=== PATIENT | female | born 1990 | race Caucasian/White ===

== ENCOUNTER 2016-10-20 15:20 | Emergency (ER) | payer OTHER ==
--- NOTE | 2016-10-20 20:22 | ED CLINICAL REPORT ---
Clinical Report - Physicians/Mid Levels [facility] [address] [place] [address] 10/20/2016 15:22 Patient: ROBB LONG Time Seen: 19:11; initial patient contact, initial documentation, patient care assumed. Arrived- By ambulance. Historian- patient. HISTORY OF PRESENT ILLNESS Chief Complaint: COUGH, SORE THROAT and "FLU". This started about 2 days ago and is still present. The illness is described as moderate. The patient has had a cough, a sore throat and muscle aches. No difficulty breathing, chest discomfort or pain or fever. No nasal congestion or discharge, sinus pressure, sinus drainage or ear pain. (here with 2 other family members that are pts, admitted to coming in ambulance because they needed a ride to hospital). Additional history - The patient has had contact with a sick individual. They have had similar symptoms. Similar symptoms previously: None. Recent medical care: Not recently seen/assessed. REVIEW OF SYSTEMS No vomiting or diarrhea. Denies current . All systems otherwise negative, except as recorded above. PAST HISTORY Negative. SOCIAL HISTORY Never smoker. Not exposed to second-hand smoke at home. No alcohol use or drug use. No recent travel. Is a local resident. She lives with spouse. FAMILY HISTORY Negative. ADDITIONAL NOTES The nursing notes have been reviewed with agreement regarding the chief complaint, HPI, ROS, PMH and patient medications and allergies. PHYSICAL EXAM Vital Signs: 10/20/2016 17:05 BP: 139/98. HR: 126. RR: 16. O2 saturation: 100%. Temp: 98.2 F. Pain level now: 0/10. Have been reviewed as abnormal and appear to be correct. Blood pressure normal. Tachycardic. Respiratory rate normal. Temperature normal. Oxygen saturation normal. Appearance: Alert. No acute distress. Eyes: Pupils equal, round and reactive to light. Eyes normal inspection. ENT: Ears normal. Nose normal. Pharynx abnormal. Moderate generalized pharyngeal erythema. No pharyngeal vesicles or ulcerations. No right tonsillar exudate, right tonsillar abscess, right tonsillar swelling, right peritonsillitis, left tonsillar exudate, left tonsillar abscess, left tonsillar swelling or left peritonsillitis. Uvula midline. Neck: Abnormal inspection. Mild right anterior neck and mild left anterior neck lymphadenopathy present. Neck supple. CVS: Normal heart rate and rhythm. Heart sounds normal. Pulses normal. Respiratory: No respiratory distress. Breath sounds normal. Abdomen: Soft and nontender. No organomegaly. Back: Normal inspection. Skin: Skin warm and dry. Normal skin color. No rash. Normal skin turgor. Extremities: Extremities exhibit normal ROM. No lower extremity edema. Neuro: Oriented X 3. No motor deficit. No sensory deficit. PROGRESS AND PROCEDURES Course of Care: 10/20/2016 20:50 BP: 118/77. HR: 96. RR: 16. O2 saturation: 99%. Temp: 99.2 F. Pain level now: 0/10. Vital Signs: have been reviewed as normal and appear to be correct. Patient counseled in person regarding the patient's stable condition, test results and diagnosis. 20:22. Differential Diagnosis: Other possible considerations: flu, uri, viral illness, bronchitis, pneumonia, strep. Above considerations are based on history and physical exam. Differential diagnosis was discussed with patient. Disposition: Discharged home in good and unchanged condition (20:22). Condition: good and stable. CLINICAL IMPRESSION Acute streptococcal pharyngitis Influenza (variant). INSTRUCTIONS Alternate Tylenol (Acetaminophen) and Motrin (Ibuprofen) for fever, temperature greater than 101 degrees orally. Take according to label instructions. Drink plenty of fluids for the next 24 hours until better. Warnings: GENERAL WARNINGS: Return or contact your physician immediately if your condition worsens or changes unexpectedly, if not improving as expected, or if other problems arise. Specifically return if problem worsens. Prescription Medications: Amoxicillin 500 mg tablets: Take 1 orally every 8 hours for 10 days. Dispense thirty (30). No refills. Motrin 600 mg tablets: take 1 tablet orally every 6 hours as needed for pain or fever. Dispense thirty (30). No refill. Follow-up: Follow up with your doctor in about three days even if well. Call for an appointment. Summary of care provided to patient. Understanding of the discharge instructions verbalized by patient. (Electronically signed by Melly Ram A.R.N.P. 10/21/2016 0:08)
--- NOTE | 2016-10-20 20:22 | ED NURSING NOTES ---
Clinical Report - Nurses [facility] [address] [place] [address] 10/20/2016 15:22 Patient: ROBB LONG TRIAGE Triage time 17:05. Chief Complaint: SORE THROAT, possible FLU EXPOSURE and (dizziness, fell down and passed out for 5 minutes). Alert. SEPSIS SCREEN: Sepsis Screen. Negative (no infection suspected/documented). --17:10 Brenda Watts R.N. 17:05 10/20/16. BP: 139/98. HR: 126. RR: 16. O2 saturation: 100%. Temp: 98.2 F. Pain level now: 0/10. --17:10 Brenda Watts R.N. Triage time 1834 PM. Acuity: LEVEL 4. Chief Complaint: COUGH, SORE THROAT and BODY ACHES. Alert. No acute distress. --18:40 Miguel Ricks R.N. 18:34 10/20/16. BP: 143/92. HR: 117. RR: 18. O2 saturation: 100%. Temp: 98.6 F. --18:40 Miguel Ricks R.N. <<STRICKEN ENTRY-- Chief Complaint: (headache, dizziness). --18:49 Miguel Ricks R.N. --END STRIKE>> Charted On Wrong Patient --18:50 Miguel Ricks R.N. <<STRICKEN ENTRY-- 18:44 10/20/16. BP: 124/74. HR: 96. RR: 16. O2 saturation: 100%. Temp: 98.1 F. Pain level now: 0/10. --18:49 Miguel Ricks R.N. --END STRIKE>> Charted on wrong patient. --18:50 Miguel Ricks R.N. Weight: 58.9 kg estimated. Height/Length: 62 inches Per Patient. BMI: 23.8. --17:08 Brenda Watts R.N. Medications Hydrochlorothiazide Oral. --18:39 Miguel Ricks R.N. Allergies No Known Drug Allergy. --18:39 iMguel Ricks R.N. History Arrived by private vehicle. Historian: patient. Primary physician (Vinita Hansen in [facility]3]). This started today. SOCIAL HX: The patient was exposed to influenza. --17:10 Brenda Watts R.N. Arrived by private vehicle. Historian: patient. Accompanied by family. Onset. (about 2 days ago). She has had contact with a sick mother and sister. ( Patient presents to the ED with symptoms of a sore throat, cough, and generalized body aches beginning about 2 days ago. Patient states that she woke up feeling "not right," states that she walked a little bit after getting out of bed and "passed out." Patient states that she did not lose consciousness, but was "sleeping." States that she could hear everything going on around her.). She has had fatigue and a headache. Treatment MANAGER CLINICAL APPLICATIONS: Took ibuprofen. SOCIAL HX: Never smoker. Alcohol use. (no). History of drug use. (no). FALL RISK ASSESSMENT: Fall risk assessment completed. No fall risk identified. NUTRITIONAL RISK ASSESSMENT: The nutritional risk assessment revealed no deficiencies. FUNCTIONAL ASSESSMENT: Functional assessment: no impairments noted. LEARNING NEEDS ASSESSMENT: The learning needs assessment revealed no barriers. SKIN INTEGRITY ASSESSMENT: Skin integrity risk assessment completed. No skin integrity risk identified. --18:40 Miguel Ricks R.N. PROBLEMS: no known problems. ADDITIONAL SURGERIES: no known surgeries. PHYSICAL ASSESSMENT Ambulatory to room. GENERAL / NEURO / PSYCH: Alert. Oriented X 4. Appears in no acute distress. HEENT: Pupils equal, round and reactive to light. Mucous membranes are pink. RESPIRATORY: Respirations not labored. Cough productive of scant amounts of white sputum. Chest nontender. Breath sounds within normal limits. CVS: Normal sinus rhythm noted. Capillary refill less than 2 seconds. Pulses within normal limits. GI / : Abdomen soft and nontender and normal bowel sounds. SKIN: Skin intact. Skin is warm and dry. Normal skin turgor. --18:40 Miguel Ricks R.N. NURSING PROGRESS NOTES Head of bed elevated. The patient is calm and resting quietly. Call light placed in reach. Side rails up x 1. Bed placed in lowest position. Brakes of bed on. --18:40 Miguel Ricks R.N. DISPOSITION / DISCHARGE Condition at departure: improved. The goals identified in the patient's plan of care were met. No learning barriers present. Discharge instructions provided and reviewed with the patient. Reviewed medication(s) side effects, precautions, dosing and course information. Prescription(s) given to the patient. Reviewed fever care instructions. Patient verbalized understanding. Written instructions provided in Sets[place]. The patient was discharged home and accompanied by family. She left the Emergency Department ambulatory and via private vehicle. Family member driving. FALL RISK ASSESSMENT: Fall risk assessment completed. No fall risk identified. --20:51 Miguel Ricks R.N. 20:50 10/20/16. BP: 118/77. HR: 96. RR: 16. O2 saturation: 99%. Temp: 99.2 F. Pain level now: 0/10. --20:51 Miguel Ricks R.N. Departure time: 2050 PM. --20:51 Miguel Ricks R.N. Locked/Released at 10/20/2016 20:56 by Miguel Ricks R.N.
--- NOTE | 2016-10-20 20:22 | ED NURSING NOTES ---
Clinical Report - Nurses [address] [address] [place] [address] 10/20/2016 15:22 Patient: ROBB LONG TRIAGE Triage time 17:05. Chief Complaint: SORE THROAT, possible FLU EXPOSURE and (dizziness, fell down and passed out for 5 minutes). Alert. SEPSIS SCREEN: Sepsis Screen. Negative (no infection suspected/documented). --17:10 Brenda Watts R.N. 17:05 10/20/16. BP: 139/98. HR: 126. RR: 16. O2 saturation: 100%. Temp: 98.2 F. Pain level now: 0/10. --17:10 Brenda Watts R.N. Triage time 1834 PM. Acuity: LEVEL 4. Chief Complaint: COUGH, SORE THROAT and BODY ACHES. Alert. No acute distress. --18:40 Miguel Ricks R.N. 18:34 10/20/16. BP: 143/92. HR: 117. RR: 18. O2 saturation: 100%. Temp: 98.6 F. --18:40 Miguel Ricks R.N. <<STRICKEN ENTRY-- Chief Complaint: (headache, dizziness). --18:49 Miguel Ricks R.N. --END STRIKE>> Charted On Wrong Patient --18:50 Miguel Ricks R.N. <<STRICKEN ENTRY-- 18:44 10/20/16. BP: 124/74. HR: 96. RR: 16. O2 saturation: 100%. Temp: 98.1 F. Pain level now: 0/10. --18:49 Miguel Ricks R.N. --END STRIKE>> Charted on wrong patient. --18:50 Miguel Ricks R.N. Weight: 58.9 kg estimated. Height/Length: 62 inches Per Patient. BMI: 23.8. --17:08 Brenda Watts R.N. Medications Hydrochlorothiazide Oral. --18:39 Miguel Ricks R.N. Allergies No Known Drug Allergy. --18:39 Miguel Ricks R.N. History Arrived by private vehicle. Historian: patient. Primary physician (Vinita Hansen in [facility]). This started today. SOCIAL HX: The patient was exposed to influenza. --17:10 Brenda Watts R.N. Arrived by private vehicle. Historian: patient. Accompanied by family. Onset. (about 2 days ago). She has had contact with a sick mother and sister. ( Patient presents to the ED with symptoms of a sore throat, cough, and generalized body aches beginning about 2 days ago. Patient states that she woke up feeling "not right," states that she walked a little bit after getting out of bed and "passed out." Patient states that she did not lose consciousness, but was "sleeping." States that she could hear everything going on around her.). She has had fatigue and a headache. Treatment SAW FILER: Took ibuprofen. SOCIAL HX: Never smoker. Alcohol use. (no). History of drug use. (no). FALL RISK ASSESSMENT: Fall risk assessment completed. No fall risk identified. NUTRITIONAL RISK ASSESSMENT: The nutritional risk assessment revealed no deficiencies. FUNCTIONAL ASSESSMENT: Functional assessment: no impairments noted. LEARNING NEEDS ASSESSMENT: The learning needs assessment revealed no barriers. SKIN INTEGRITY ASSESSMENT: Skin integrity risk assessment completed. No skin integrity risk identified. --18:40 Miguel Ricks R.N. PROBLEMS: no known problems. ADDITIONAL SURGERIES: no known surgeries. PHYSICAL ASSESSMENT Ambulatory to room. GENERAL / NEURO / PSYCH: Alert. Oriented X 4. Appears in no acute distress. HEENT: Pupils equal, round and reactive to light. Mucous membranes are pink. RESPIRATORY: Respirations not labored. Cough productive of scant amounts of white sputum. Chest nontender. Breath sounds within normal limits. CVS: Normal sinus rhythm noted. Capillary refill less than 2 seconds. Pulses within normal limits. GI / : Abdomen soft and nontender and normal bowel sounds. SKIN: Skin intact. Skin is warm and dry. Normal skin turgor. --18:40 Miguel Ricks R.N. NURSING PROGRESS NOTES Head of bed elevated. The patient is calm and resting quietly. Call light placed in reach. Side rails up x 1. Bed placed in lowest position. Brakes of bed on. --18:40 Miguel Ricks R.N. DISPOSITION / DISCHARGE Condition at departure: improved. The goals identified in the patient's plan of care were met. No learning barriers present. Discharge instructions provided and reviewed with the patient. Reviewed medication(s) side effects, precautions, dosing and course information. Prescription(s) given to the patient. Reviewed fever care instructions. Patient verbalized understanding. Written instructions provided in Hebrew. The patient was discharged home and accompanied by family. She left the Emergency Department ambulatory and via private vehicle. Family member driving. FALL RISK ASSESSMENT: Fall risk assessment completed. No fall risk identified. --20:51 Miguel Ricks R.N. 20:50 10/20/16. BP: 118/77. HR: 96. RR: 16. O2 saturation: 99%. Temp: 99.2 F. Pain level now: 0/10. --20:51 Miguel Ricks R.N. Departure time: 2050 PM. --20:51 Miguel Ricks R.N. Locked/Released at 10/20/2016 20:56 by Miguel Ricks R.N.
--- NOTE | 2016-10-21 00:08 | ED DISCHARGE INSTRUCTIONS ---
Patient: ROBB LONG General Instructions [facility] VisitID: [id number] [place] [address] 26y, F Registration Date/Time: 10/20/2016 Acute streptococcal pharyngitis Influenza (variant). INSTRUCTIONS Alternate Tylenol (Acetaminophen) and Motrin (Ibuprofen) for fever, temperature greater than 101 degrees orally. Take according to label instructions. Drink plenty of fluids for the next 24 hours until better. Warnings: GENERAL WARNINGS: Return or contact your physician immediately if your condition worsens or changes unexpectedly, if not improving as expected, or if other problems arise. Specifically return if problem worsens. Prescription Medications: Amoxicillin 500 mg tablets: Take 1 orally every 8 hours for 10 days. Dispense thirty (30). No refills. Motrin 600 mg tablets: take 1 tablet orally every 6 hours as needed for pain or fever. Dispense thirty (30). No refill. Follow-up: Follow up with your doctor in about three days even if well. Call for an appointment. Summary of care provided to patient. Understanding of the discharge instructions verbalized by patient. ADDITIONAL INFORMATION Pharyngitis: Strep [Presumed] Your illness has the signs of a strep throat infection. Strep throat is a contagious illness. It is spread by coughing, kissing or by touching others after touching your mouth or nose. Symptoms include throat pain worse with swallowing, aching all over, headache and fever. You will be treated with an antibiotic, which should make you start to feel better within 1-2 days. Home Care: Rest at home and drink plenty of fluids to avoid dehydration. No school or work for the first two days on antibiotics. You will not be contagious after this time, and if you are feeling better, you can return to school or work. Take your antibiotics for a full 10 days, even if you feel better after the first few days of treatment. This is very important to prevent complications from the strep infection (such as heart or kidney disease). Children: Use acetaminophen (Tylenol) for fever, fussiness or discomfort. In infants over six months of age, you may use ibuprofen (Children's Motrin) instead of Tylenol. [NOTE: If your child has chronic liver or kidney disease or ever had a stomach ulcer or GI bleeding, talk with your doctor before using these medicines.] (Aspirin should never be used in anyone under 18 years of age who is ill with a fever. It may cause severe liver damage.) Adults: You may use acetaminophen (Tylenol) or ibuprofen (Motrin, Advil) to control pain or fever, unless another medicine was prescribed for this. [NOTE: If you have chronic liver or kidney disease or ever had a stomach ulcer or GI bleeding, talk with your doctor before using these medicines.] Throat lozenges or sprays (Chloraseptic and others) will reduce pain. Gargling with warm salt water will also reduce throat pain. Dissolve 1/2 teaspoon of salt in 1 glass of warm water. This is especially useful just before meals. Follow Up with your doctor or as directed by our staff if you are not improving over the next week. Get Prompt Medical Attention if any of the following occur: Fever over 100.5F (38.0C) oral, or over 101.5F (38.6C) rectal for more than three days New or worsening ear pain, sinus pain or headache Painful lumps in the back of your neck Unable to swallow liquids or open your mouth wide due to throat pain Trouble breathing or noisy breathing Muffled voice New rash Influenza (Adult) Influenza, also called the flu, is a viral illness that affects the air passages of the lungs. It differs from the common cold. It is highly contagious. It may be spread through the air by coughing and sneezing or by direct contact (touching the sick person and then touching your own eyes, nose or mouth). Illness starts 1-3 days after exposure and lasts for 1-2 weeks. Antibiotics are usually not needed unless a complication appears (ear or sinus infection or pneumonia). Symptoms may be mild or severe and can include extreme tiredness (wanting to stay in bed all day), chills, fevers, muscle aching, soreness with eye movement, headache, and a dry, hacking cough. Home Care: Avoid exposure to cigarette smoke (yours or others). Tylenol or ibuprofen (Advil) will help fever, muscle aching, and headache. To avoid risk of liver injury, aspirin should not be used in children and teenagers under 18 with this illness. Nausea and loss of appetite are common. A light diet is recommended. Avoid dehydration by drinking 6-8 glasses of fluids per day (water, sport drinks like Gatorade, soft drinks without caffeine, juices, tea, soup, etc.). Extra fluids will also help loosen secretions in the nose and lungs. Hcci-vpf-cekolnc cold medicines will not shorten the duration of the illness but may be helpful for the following symptoms: cough (Robitussin DM); sore throat (Chloraseptic lozenges or spray); nasal and sinus congestion (Actifed or Sudafed). [NOTE: Do not use decongestants if you have high blood pressure.] Stay home until your fever has been gone for at least 24 hours (without the use of fever-reducing medications such as ibuprofen). Follow Up with your doctor or as directed by our staff if you are not improving over the next week. Note: If you are age 65 or older, or if you have chronic asthma or COPD, we recommend a pneumococcal vaccinationevery five years. All adults shouldreceive a yearly influenza vaccination every . Ask your doctor about this. Get Prompt Medical Attention if any of the following occur: Cough with lots of colored sputum (mucus) or blood in your sputum Chest pain, shortness of breath, wheezing, or difficulty breathing Severe headache, face, neck or ear pain New rash Fever of 100.4F (38C) oral or higher, not better with fever medication Confusion, behavior change or seizure Severe weakness or dizziness Fever Control (Adult) A fever is a natural reaction of the body to an illness. In most cases, the temperature itself is not harmful. It actually helps the body fight infections. A fever does not need to be treated unless you feel very uncomfortable. Home Care If you feel warm, check your temperature. If you feel very uncomfortable and your temperature is at or higher than 100.4F (38C) oral, you may take acetaminophen (Tylenol) every 4 to 6 hours. If you cant take or keep down oral medicine, ask your pharmacist for Tylenol suppositories, which you can get without a prescription. If the fever does not respond to acetaminophen within 1 hour, take ibuprofen (Advil or Motrin). If this works, keep taking the ibuprofen every 6 to 8 hours. Note: If you have chronic liver or kidney disease or ever had a stomach ulcer or GI bleeding, talk with your doctor before using these medications. If either medication alone does not keep the fever down, you may alternate the two medicines every 3 to 4 hours, only if your healthcare provider has instructed you to do so. For example, take Motrin then wait 3 hours, take Tylenol then wait 3 hours, take Motrin, and so on. Follow your healthcare providers instructions exactly. Clothing: Keep clothing light because excess body heat is lost through the skin. The fever will go up if you wear extra layers or wrap in blankets. Fluids: Fever causes the body to lose water through evaporation. Drink plenty of fluids such as water, juice, clear sodas, stanislaw dong, or lemonade. Do not use aspirin in anyone under 18 years of age who is ill with a fever. It can cause severe liver damage. Follow Up with your doctor or as advised by our staff if you do not get better after 48 hours. Get Prompt Medical Attention if any of the following occur: Fever does not get better after taking fever medication Fast or difficult breathing Earache, sinus pain, stiff or painful neck, headache, repeated diarrhea or vomiting You feel unusually irritable, drowsy, or confused A rash appears You feel weak or dizzy, or that you might faint Amoxicillin Trihydrate Oral tablet What is this medicine? AMOXICILLIN (a mox i JUDI in) is a penicillin antibiotic. It is used to treat certain kinds of bacterial infections. It will not work for colds, flu, or other viral infections. How should I use this medicine? Take this medicine by mouth with a glass of water. Follow the directions on your prescription label. You may take this medicine with food or on an empty stomach. Take your medicine at regular intervals. Do not take your medicine more often than directed. Take all of your medicine as directed even if you think your are better. Do not skip doses or stop your medicine early. Talk to your deputy prosecuting attorney regarding the use of this medicine in children. While this drug may be prescribed for selected conditions, precautions do apply. What side effects may I notice from receiving this medicine? Side effects that you should report to your doctor or health care clinician as soon as possible: allergic reactions like skin rash, itching or hives, swelling of the face, lips, or tongue breathing problems dark urine redness, blistering, peeling or loosening of the skin, including inside the mouth seizures severe or watery diarrhea trouble passing urine or change in the amount of urine unusual bleeding or bruising unusually weak or tired yellowing of the eyes or skin Side effects that usually do not require medical attention (report to your doctor or health care clinician if they continue or are bothersome): dizziness headache stomach upset trouble sleeping What may interact with this medicine? amiloride control pills chloramphenicol macrolides probenecid sulfonamides tetracyclines What if I miss a dose? If you miss a dose, take it as soon as you can. If it is almost time for your next dose, take only that dose. Do not take double or extra doses. Where should I keep my medicine? Keep out of the reach of children. Store between 68 and 77 degrees F (20 and 25 degrees C). Keep bottle closed tightly. Throw away any unused medicine after the expiration date. What should I tell my health care provider before I take this medicine? They need to know if you have any of these conditions: asthma kidney disease an unusual or allergic reaction to amoxicillin, other penicillins, cephalosporin antibiotics, other medicines, foods, dyes, or preservatives or trying to get breast-feeding What should I watch for while using this medicine? Tell your doctor or health care clinician if your symptoms do not improve in 2 or 3 days. Take all of the doses of your medicine as directed. Do not skip doses or stop your medicine early. If you are diabetic, you may get a false positive result for sugar in your urine with certain brands of urine tests. Check with your doctor. Do not treat diarrhea with [id number] products. Contact your doctor if you have diarrhea that lasts more than 2 days or if the diarrhea is severe and watery. Ibuprofen Oral tablet What is this medicine? IBUPROFEN (eye BYOO proe fen) is a non-steroidal anti-inflammatory drug (NSAID). It is used for dental pain, fever, headaches or migraines, osteoarthritis, rheumatoid arthritis, or painful monthly periods. It can also relieve minor aches and pains caused by a cold, flu, or sore throat. How should I use this medicine? Take this medicine by mouth with a glass of water. Follow the directions on the prescription label. Take this medicine with food if your stomach gets upset. Try to not lie down for at least 10 minutes after you take the medicine. Take your medicine at regular intervals. Do not take your medicine more often than directed. A special MedGuide will be given to you by the pharmacist with each prescription and refill. Be sure to read this information carefully each time. Talk to your deputy prosecuting attorney regarding the use of this medicine in children. Special care may be needed. What side effects may I notice from receiving this medicine? Side effects that you should report to your doctor or health care clinician as soon as possible: allergic reactions like skin rash, itching or hives, swelling of the face, lips, or tongue black or bloody stools, blood in the urine or in vomit breathing problems changes in vision chest pain general ill feeling or flu-like symptoms nausea or vomiting redness, blistering, peeling or loosening of the skin, including inside the mouth slurred speech or weakness on one side of the body stomach pain unexplained weight gain or swelling unusually weak or tired yellowing of eyes or skin Side effects that usually do not require medical attention (report to your doctor or health care clinician if they continue or are bothersome): constipation or diarrhea dizziness gas or heartburn stomach upset What may interact with this medicine? Do not take this medicine with any of the following medications: cidofovir ketorolac methotrexate pemetrexed This medicine may also interact with the following medications: alcohol aspirin diuretics lithium other drugs for inflammation like prednisone warfarin What if I miss a dose? If you miss a dose, take it as soon as you can. If it is almost time for your next dose, take only that dose. Do not take double or extra doses. Where should I keep my medicine? Keep out of the reach of children. Store at room temperature between 15 and 30 degrees C (59 and 86 degrees F). Keep container tightly closed. Throw away any unused medicine after the expiration date. What should I tell my health care provider before I take this medicine? They need to know if you have any of these conditions: asthma cigarette smoker drink more than 3 alcohol containing drinks a day heart disease or circulation problems such as heart failure or leg edema (fluid retention) high blood pressure kidney disease liver disease stomach bleeding or ulcers an unusual or allergic reaction to ibuprofen, aspirin, other NSAIDS, other medicines, foods, dyes, or preservatives or trying to get breast-feeding What should I watch for while using this medicine? Tell your doctor or healthcare professional if your symptoms do not start to get better or if they get worse. This medicine does not prevent heart attack or stroke. In fact, this medicine may increase the chance of a heart attack or stroke. The chance may increase with longer use of this medicine and in people who have heart disease. If you take aspirin to prevent heart attack or stroke, talk with your doctor or health care clinician. Do not take other medicines that contain aspirin, ibuprofen, or naproxen with this medicine. Side effects such as stomach upset, nausea, or ulcers may be more likely to occur. Many medicines available without a prescription should not be taken with this medicine. This medicine can cause ulcers and bleeding in the stomach and intestines at any time during treatment. Ulcers and bleeding can happen without warning symptoms and can cause . To reduce your risk, do not smoke cigarettes or drink alcohol while you are taking this medicine. You may get drowsy or dizzy. Do not drive, use machinery, or do anything that needs mental alertness until you know how this medicine affects you. Do not stand or sit up quickly, especially if you are an older patient. This reduces the risk of dizzy or fainting spells. This medicine can cause you to bleed more easily. Try to avoid damage to your teeth and gums when you brush or floss your teeth. You have been given the following additional information: Pharyngitis, Strep (Presumed) Influenza (Adult) Fever Control (Adult) Amoxicillin Trihydrate Oral tablet Ibuprofen Oral tablet (Electronically signed by Melly Ram A.R.N.P. 10/21/2016 0:08)
--- NOTE | 2016-10-21 00:08 | ED MED RECONCILIATION SUMMARY ---
Patient: ROBB LONG Medication Reconciliation Report [facility] VisitID: [id number] [address] [place] [address] 26y, F Registration Date/Time: 10/20/2016 Weight: 58.9 kg Height/Length: 62 in. BMI: 23.8 ALLERGIES: No Known Drug Allergy The patient's Home Medications are listed below: THE FOLLOWING MEDICATIONS NEED TO BE RECONCILED: Hydrochlorothiazide Oral The source(s) of the original Home Medication information: Not obtained. The following Medications were given to the patient in the Emergency Department: None. The following Medications were prescribed to the patient: Amoxicillin 500 mg tablets: Take 1 orally every 8 hours for 10 days. Dispense thirty (30). No refills. -- Melly Ram, A.R.N.P. Motrin 600 mg tablets: take 1 tablet orally every 6 hours as needed for pain or fever. Dispense thirty (30). No refill. -- Melly Ram, A.R.N.P.
--- NOTE | 2016-10-21 00:08 | ED MAR SUMMARY ---
..... Medication Administration Record [facility] [address] [place], [place] [id number] Patient: ROBB LONG Visit ID: [id number] 26y, F Weight: 58.9 kg Height/Length: 62 in BMI: 23.8 ALLERGIES: No Known Drug Allergy
--- NOTE | 2016-10-21 00:08 | ED MED RECONCILIATION SUMMARY ---
Patient: ROBB LONG Medication Reconciliation Report [facility] VisitID: [id number] [address] [place] [address] 26y, F Registration Date/Time: 10/20/2016 Weight: 58.9 kg Height/Length: 62 in. BMI: 23.8 ALLERGIES: No Known Drug Allergy The patient's Home Medications are listed below: THE FOLLOWING MEDICATIONS NEED TO BE RECONCILED: Hydrochlorothiazide Oral The source(s) of the original Home Medication information: Not obtained. The following Medications were given to the patient in the Emergency Department: None. The following Medications were prescribed to the patient: Amoxicillin 500 mg tablets: Take 1 orally every 8 hours for 10 days. Dispense thirty (30). No refills. -- Melly Ram, A.R.N.P. Motrin 600 mg tablets: take 1 tablet orally every 6 hours as needed for pain or fever. Dispense thirty (30). No refill. -- Melly Ram, A.R.N.P.
--- NOTE | 2016-10-21 00:08 | ED MAR SUMMARY ---
..... Medication Administration Record [facility] [address] [place], [place] [id number] Patient: ROBB LONG Visit ID: [id number] 26y, F Weight: 58.9 kg Height/Length: 62 in BMI: 23.8 ALLERGIES: No Known Drug Allergy
== END 2016-10-20 20:48 | disposition home or self-care (01) ==
LOC: ED SRH 15:20
DX: J02.0 Streptococcal pharyngitis (principal); J11.1 Influenza due to unidentified influenza virus with other respiratory manifestations